=== PATIENT | female | born 1970 | race African-American/Black ===

== ENCOUNTER 2020-08-15 08:50 | Outpatient (CLI) | payer OTHER | END 2020-08-15 23:59 | disposition home or self-care (01) | LOC: LAB 08:50 | PROVIDERS: ATTEND Student in an Organized Health Care Education/Training Program | DX: U07.1 COVID-19 (principal) | CPT/HCPCS: 87426; C9803 ×2; U0003 ==

== ENCOUNTER 2020-09-12 08:43 | Outpatient (CLI) | payer OTHER | END 2020-09-12 23:59 | disposition home or self-care (01) | LOC: LAB 08:43 | PROVIDERS: ATTEND Student in an Organized Health Care Education/Training Program | DX: Z01.812 Encounter for preprocedural laboratory examination (principal); Z20.822 Contact with and (suspected) exposure to COVID-19 | CPT/HCPCS: C9803; U0003 ==